=== PATIENT | male | born 1950 | race Caucasian/White ===

== ENCOUNTER 2024-09-23 10:52 | Day surgery (SDC) | payer MEDICARE ==
[~2024-09-23] VITALS: Ht 180.3 cm; Wt 71.0 kg
[2024-09-23] VITALS (8 sets, daily range): BP systolic 128–148; BP diastolic 58–98; PULSE 50–65; RESP 16; TEMP 97.3; O2SAT 94–98
[2024-09-23] MEDS ORDERED: normal saline 1,000 ML IV SCH (11:30)
[2024-09-23] MEDS ORDERED: LORazepam 0.5 MG tablet PO PRN (11:30)
[2024-09-23] MEDS ORDERED: diphenhydrAMINE 25mg capsule PO PRN (11:30)
[2024-09-23] MEDS ORDERED: LIDOcaine 1% (10mg/ml) 2ml vial ONE ×2 (11:43→12:15)
[2024-09-23] MEDS ORDERED: heparin 1,000unit/ml 10ml vial 10 ML ONE ×2 (11:43→12:06)
[2024-09-23] MEDS ORDERED: fentaNYL/PF 50MCG/1 ML 2ML syringe ONE ×2 (11:43→12:06)
[2024-09-23] MEDS ORDERED: verapamil 2.5 mg/ml inj IV ONE ×2 (11:43→12:05)
[2024-09-23] MEDS ORDERED: midazolam 1 mg/ML 2ml injection ONE ×3 (11:43→14:11)
[2024-09-23] MEDS ORDERED: iohexol 350MG/ML 100ml bottle IV ONE ×2 (11:44→12:06)
[2024-09-23 11:55] LABS: BASOPHILS # (AUTO) 0.1 X10'3 (0-0.2); BASOPHILS % (AUTO) 1.1 % (0-1); EOSINOPHILS # (AUTO) 0.1 X10'3 (0-0.9); EOSINOPHILS % (AUTO) 1.8 % (0-6); HEMATOCRIT 39.6 % (42.0-52.0); HEMOGLOBIN 13.2 g/dl (14.0-17.9); LYMPHOCYTES # (AUTO) 1.1 X10'3 (1.1-4.8); LYMPHOCYTES % (AUTO) 13.4 % (21-51); MEAN CORPUSCULAR HEMOGLOBIN 33.4 PG (27.0-31.0); MEAN CORPUSCULAR HGB CONC 33.2 g/dL (33.0-36.5); MEAN CORPUSCULAR VOLUME 100.4 FL (78-98); MEAN PLATELET VOLUME 6.7 FL (7.4-10.4); MONOCYTES # (AUTO) 0.6 X10'3 (0-0.9); MONOCYTES % (AUTO) 7.8 % (2-12); NEUTROPHILS # (AUTO) 6.2 X10'3 (1.8-7.7); NEUTROPHILS % (AUTO) 75.9 % (42-75); PLATELET COUNT 267 X10'3 (140-440); RED BLOOD COUNT 3.95 X10'6 (4.70-6.10); RED CELL DISTRIBUTION WIDTH 14.8 % (11.5-14.5); WHITE BLOOD COUNT 8.1 X10'3 (4.5-11.0)
[2024-09-23] MEDS ORDERED: iohexol 350 MG/ML 50ML vial IV ONE ×3 (12:06→14:19)
[2024-09-23] MEDS ORDERED: nitroGLYCERIN 500mcg/5mL D5W 5 ML IV ONE (12:07)
[2024-09-23 12:11] LABS: APTT 29 SECONDS (22-32); PROTHROMBIN TIME 10.8 SECONDS (9.0-12.0)
[2024-09-23 12:13] LABS: ALBUMIN 3.4 G/DL (3.4-5.0); ANION GAP 4 (8-16); BLOOD UREA NITROGEN 12 MG/DL (7-18); BUN/CREATININE RATIO 12.4 (10.0-20.0); CALCIUM 8.2 MG/DL (8.5-10.1); CHLORIDE 106 MMOL/L (99-107); CHOL/HDL RATIO 3.1 (0.00-4.99); CHOLESTEROL 190 MG/DL (0-200); CREATININE 0.97 MG/DL (0.60-1.10); GLUCOSE 90 MG/DL (70-104); HDL CHOLESTEROL 62 MG/DL (35-60); LDL CHOLESTEROL 109 MG/DL (50-100); SODIUM 138 MMOL/L (135-145); TOTAL CARBON DIOXIDE 27.6 MMOL/L (24-32); TRIGLYCERIDES 78 MG/DL (20-135); eCRCL 68 ML/MIN; eGFR 76 ML/MIN
[2024-09-23] MEDS ORDERED: LISI2.5T14 PO (12:30)
[2024-09-23] MEDS ORDERED: LEVO100T9 PO (12:30)
[2024-09-23] MEDS ORDERED: ASPI-1397 PO (12:30)
[2024-09-23] MEDS ORDERED: HYDROcodone/acetaminophen 5mg/325mg tablet PO PRN (15:00)
[2024-09-23] MEDS ORDERED: HYDROcodone/acetaminophen 10/325mg tab PO PRN (15:00)
[2024-09-23 15:10] LABS: ISTAT HGB ART 12.9 g/dl (14.0-17.9); ISTAT Hct ART 38 %PCV (42-52); ISTAT O2 SATURATION ARTERIAL 94 % (95-98); ISTAT SOURCE BLNK
== END 2024-09-23 16:35 | disposition home or self-care (01) ==
LOC: SSTAY O 10:52
PROVIDERS: ATTEND Internal Medicine Interventional Cardiology
DX: I35.0 Nonrheumatic aortic (valve) stenosis (principal); I25.10 Atherosclerotic heart disease of native coronary artery without angina pectoris; I45.10 Unspecified right bundle-branch block; I11.0 Hypertensive heart disease with heart failure; I50.9 Heart failure, unspecified; E03.9 Hypothyroidism, unspecified; E78.5 Hyperlipidemia, unspecified; Z79.82 Long term (current) use of aspirin; Z79.890 Hormone replacement therapy; Z79.899 Other long term (current) drug therapy; Z95.1 Presence of aortocoronary bypass graft
CPT/HCPCS: 36415; 80048; 80061; 82803; 82948; 85014; 85025; 85610; 85730; 93005; 93457; 93567; 99152; 99153; A6258; A6402; C1751; C1769; C1894; J1644; J2003; J2250; J3010; J3490; J7030; Q9967; Z7610; 93456